=== PATIENT | male | born 1980 | race American Indian/Alaskan Native ===

== ENCOUNTER 2020-01-23 22:25 | Emergency (ER) | payer OTHER ==
[2020-01-24 01:41] VITALS: BP 124/80
== END 2020-01-24 01:40 | disposition home or self-care (01) ==
LOC: ED 22:25
DX: R05 Cough (principal); Z53.21 Procedure and treatment not carried out due to patient leaving prior to being seen by health care provider
CPT/HCPCS: 93005; 93010